=== PATIENT | female | born 1935 | race Caucasian/White ===

== ENCOUNTER 2024-04-18 11:16 | Day surgery (SDC) | payer MEDICARE, OTHER ==
[2024-04-18 12:25] VITALS: BMI 22.4
[2024-04-18] MEDS ORDERED: PROPOFOL 20 ML ONE (12:45)
[2024-04-18] MEDS ORDERED: Lidocaine 1% PF 5 ML VIAL ONE (12:45)
[2024-04-18] MEDS ORDERED: Rocuronium Bromide 10 MG/ML (10ML VIAL) ONE (12:46)
[2024-04-18] MEDS ORDERED: ePHEDrine Sulfate 50 MG/10 ML VIAL ONE (12:50)
[2024-04-18] MEDS ORDERED: fentaNYL 50 mcg/mL 1 mL Vial ONE (12:51)
[2024-04-18 13:01] LABS: #Basophils 0.04 10x3/uL (0.0-0.2); #Monocytes 0.67 10x3/uL (0.0-1.1); %Basophils 0.5 % (0.0-2.0); %Eosinophils 1.2 % (0.0-6.0); %Lymphocytes 17.6 % (18.0-47.0); %Monocytes 7.9 % (0.0-10.0); %Neutrophils 72.2 % (40.0-75.0); Hemoglobin 11.4 g/dL (12.0-15.5); Mean Corpuscular HGB CONC 32.6 g/dL (32.0-36.0); Mean Corpuscular Hemoglobin 31.1 pg (27.0-33.0); Mean Corpuscular Volume 95.4 fL (81.6-98.3); Mean Platelet Volume 10.5 fL (7.4-10.4); Platelet Count 250 10x3/uL (150-450); RBC Distribution Width 12.9 % (11.5-14.5); Red Blood Cell (RBC) Count 3.67 10x6/uL (3.90-5.03); White Blood Cell (WBC) Count 8.5 10x3/uL (3.5-10.5)
[2024-04-18] MEDS ORDERED: Bupivacaine 0.25% HCL 30 ML VIAL ONE (13:04)
[2024-04-18] MEDS ORDERED: EPINEPHrine 1 MG/ML VIAL ONE (13:04)
[2024-04-18 13:07] LABS: Anion Gap 15 mmol/L (10-20); BUN (Urea Nitrogen) 21 mg/dL (9.8-20.1); Calc. Creatinine Clearance 40 mL/min (70-130); Calcium 9.1 mg/dL (7.8-10.44); Carbon Dioxide 20 mmol/L (23-31); Chloride 103 mmol/L (98-107); Estimated GFR 55; Glucose 87 mg/dL (83-110); Potassium 4.3 mmol/L (3.5-5.1); Sodium 134 mmol/L (136-145)
[2024-04-18] MEDS ORDERED: ceFOXitin 1 GM VIAL ONE (13:20)
[2024-04-18] MEDS ORDERED: Ondansetron PF 4 MG/2 ML Vial ONE (13:42)
[2024-04-18] MEDS ORDERED: Dexamethasone 4 mg/ml Vial ONE (13:42)
[2024-04-18] MEDS ORDERED: SUGAMMADEX SODIUM 200 MG/2 ML VIAL ONE (13:54)
== END 2024-04-18 15:20 | disposition home or self-care (01) ==
LOC: CSHSDC 11:16
PROVIDERS: ATTEND Surgery
PROC: 0W9G3ZZ Drainage of Peritoneal Cavity, Percutaneous Approach (ICD-10-PCS; principal; 2024-04-18)
DX: L02.211 Cutaneous abscess of abdominal wall (principal); I10 Essential (primary) hypertension; H91.90 Unspecified hearing loss, unspecified ear; M19.90 Unspecified osteoarthritis, unspecified site; M10.9 Gout, unspecified; M81.0 Age-related osteoporosis without current pathological fracture; Z79.899 Other long term (current) drug therapy; Z90.710 Acquired absence of both cervix and uterus; Z90.49 Acquired absence of other specified parts of digestive tract; Z98.890 Other specified postprocedural states; Z88.8 Allergy status to other drugs, medicaments and biological substances; Z88.5 Allergy status to narcotic agent; K21.9 Gastro-esophageal reflux disease without esophagitis; Z96.652 Presence of left artificial knee joint
CPT/HCPCS: 10061; 80048; 85025; 87070; 87075; 87077; 87186; 87205; 93005; J0171; J0665; J0694; J1100; J2405; J2704; J3010; 88304; 93010